=== PATIENT | male | born 1995 | race American Indian/Alaskan Native ===

== ENCOUNTER 2020-06-25 15:50 | Emergency (ER) | payer SELFPAY ==
[2020-06-25] MEDS ORDERED: NEOMY 3.5 MG/BACIT 400 UNITS/POLY B 5000 UNITS/GM OINT PACKET TP ONE (17:47)
[2020-06-25] MEDS ORDERED: KETOROLAC 10 MG TAB PO ONE (17:47)
[2020-06-25 18:25] VITALS: BP 134/66
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
== END 2020-06-25 19:30 | disposition home or self-care (01) ==
LOC: ED 15:50
DX: S40.812A Abrasion of left upper arm, initial encounter (principal); M25.512 Pain in left shoulder; F17.200 Nicotine dependence, unspecified, uncomplicated; Z79.899 Other long term (current) drug therapy; Z98.890 Other specified postprocedural states; V49.59XA Passenger injured in collision with other motor vehicles in traffic accident, initial encounter; Y92.410 Unspecified street and highway as the place of occurrence of the external cause; Y93.89 Activity, other specified; Y99.8 Other external cause status
CPT/HCPCS: 73030; 99283; A6250